=== PATIENT | female | born 1995 | race Caucasian/White ===

== ENCOUNTER 2016-08-24 04:00 | Inpatient (IN) | payer OTHER ==
[2016-08-24] MEDS: DEXTROSE 5%-LACTATED RINGERS 1,000 ML IV SCH (04:10)
[2016-08-24] MEDS ORDERED: BUTORPHANOL TARTRATE 1 MG/ML VIAL IVPB ONE (04:55)
[2016-08-24] MEDS ORDERED: OXYTOCIN 15 UNITS/ LR 250 ML 250 ML IVPB SCH (08:00)
[2016-08-24] MEDS ORDERED: TUBERCULIN PPD 5 TU/0.1ML SYRINGE (IN PATIENT USE ONLY) ID ONE (08:30)
[2016-08-24] MEDS ORDERED: BENZOCAINE 20% 57 GM BOTTLE TP PRN (08:55)
[2016-08-24] MEDS ORDERED: BISACODYL 10 MG SUPP.RECT RC PRN (08:55)
[2016-08-24] MEDS ORDERED: METHYLERGONOVINE MALEATE 0.2 MG/1 ML AMP IM PRN (08:55)
[2016-08-24] MEDS ORDERED: BENZOCAINE 28 GM HEMORRHOIDAL OINTMENT TP PRN (08:55)
[2016-08-24] MEDS ORDERED: WITCH HAZEL 50% (TUCKS) 40 PAD/JAR PAD TP PRN (08:55)
--- NOTE | 2016-08-24 08:59 | PN ---
Delivery - Delivery Vaginal Delivery: Spontaneous Type of Anesthesia: Local Episiotomy/Laceration: 1st degree EBL (cc): 250 Delivery, Single - Feeding Plan Initial Plan: Elected not to breastfeed exclusively throughout hospitalization Remarks - Remarks Remarks: Normal spontaneous vaginal delivery of a live infant boy over labial laceration. Nose / Oropharyn suctioned @ perineum. Cord clamped and cut. Placenta expelled spontaneously intact.. Labial laceration repaired with 2.0 Byosyn.
[2016-08-24] MEDS ORDERED: ELECTROLYTE-148 SOLN 1,000 ML IV SCH (09:00)
[2016-08-24] MEDS ORDERED: D5W-LR W/ 20 UNITS OXYTOCIN 1,000 ML IV SCH (09:00)
--- NOTE | 2016-08-24 09:04 | HP ---
Past Medical History - Admission Chief Complaint: Labor oneal History of Present Illness: 21 yo @ 38 weeks gestation, admitted for Labor pain. History Source: Patient Limitations to Obtaining History: No Limitations - Past Medical History ...: 2 ...Para: 1 ...Term: 1 ...EDC by Andie: 09/05/16 - Past Surgical History Past Surgical History: Yes: None Hx Myomectomy: No Hx Transabdominal Cerclage: No - Smoking History Smoking history: Never smoked Have you smoked in the past 12 months: No - Alcohol/Substance Use Hx Alcohol Use: No History of Substance Use: reports: None - Social History Usual Living Arrangement: Yes: With Spouse History of Recent Travel: No Home Medications - Allergies Allergies/Adverse Reactions: Allergies Allergy/AdvReac Type Severity Reaction Status Date / Time No Known Allergies Allergy Verified 08/23/16 13:49 - Home Medications Home Medications: Ambulatory Orders Vit No.130/Iron/FA [ Vitamins] 1 each PO DAILY 08/23/16 Family Disease History - Family Disease History Family History: Unremarkable Review of Systems - Review of Systems Constitutional: reports: No Symptoms Eyes: reports: No Symptoms HENT: reports: No Symptoms Neck: reports: No Symptoms Cardiovascular: reports: No Symptoms Respiratory: reports: No Symptoms Gastrointestinal: reports: No Symptoms Genitourinary: reports: Pain Breasts: reports: No Symptoms Reported Musculoskeletal: reports: No Symptoms Integumentary: reports: No Symptoms Neurological: reports: No Symptoms Endocrine: reports: No Symptoms Psychiatric: reports: No Symptoms Pain Intensity: 9 Physical Exam - Maternity Vital Signs: Vital Signs Temperature 96.7 F L 08/24/16 06:00 Pulse Rate 85 08/24/16 06:00 Respiratory Rate 20 08/24/16 06:00 Blood Pressure 124/74 08/24/16 06:00 O2 Sat by Pulse Oximetry (%) Constitutional: Yes: Well Nourished Eyes: Yes: Conjunctiva Clear Neck: Yes: Supple Cardiovascular: Yes: Regular Rate and Rhythm Lungs: Clear to auscultation Breast(s): Yes: WNL - Abdominal Exam/OB Number of Fetuses: Single Presentation: Vertex Contractions: Yes - Vaginal Exam/OB Vaginal Bleediing: No Amniotic Membrane Status: Intact Presentation: Vertex/Position - Physical Exam Musculoskeletal: Yes: WNL ...Motor Strength: WNL Psychiatric: Yes: Alert, Oriented Problem List - Problems (1) Pain during labor Code(s): O99.89 - OTH DISEASES AND CONDITIONS COMPL PREG/CHLDBRTH R52 - PAIN, UNSPECIFIED (2) Status post vaginal delivery Code(s): UPY3456 - Assessment/Plan Active labor Admit to L&D Anal gesia as needed Anticipate
[2016-08-24] MEDS: PRENATAL VITAMINS W/ FOLIC ACID TABLET (FP) PO SCH (10:37)
[2016-08-24] MEDS: IBUPROFEN 600 MG TABLET (FP) PO PRN ×2 (10:38→14:18)
[2016-08-24] MEDS: ACETAMINOPHEN 325 MG TABLET (FP) PO PRN ×2 (10:38→14:19)
[2016-08-24] MEDS: FERROUS SO4 325 MG TABLET (FP) PO SCH ×2 (12:06→18:01)
[2016-08-24] MEDS ORDERED: IBUPROFEN 800 MG/8 ML IJ IVPB PRN (16:30)
--- NOTE | 2016-08-25 07:04 | PN ---
Post Progress Note - Subjective Subjective: Pt seen/evaluated and doing well. Pain controlled, tolerating diet. Ambulating , voiding, passing flatus. Denies CP/SOB/F/C/POSADA. No other complaints. Type of Delivery: Vital Signs: Vital Signs Temperature 97.7 F 08/25/16 06:00 Pulse Rate 71 08/25/16 06:00 Respiratory Rate 18 08/25/16 06:00 Blood Pressure 123/82 08/25/16 06:00 O2 Sat by Pulse Oximetry (%) Uterus: Yes: Fundus Firm, Fundus below umbilicus Abdomen/GI: Yes: Abdomen soft, Passing flatus, Tolerating PO. No: Abdominal Distention, Tender Lochia: Yes: Rubra Lochia, amount: Small Extremities: Yes: Calves non-tender. No: Edema Perineum: Yes: Intact (labial laceration -- repaired) Activity: Ambulating Problem List - Problems (1) Status post vaginal delivery Code(s): ELU3431 - (2) Spontaneous vaginal delivery Code(s): O80 - ENCOUNTER FOR FULL-TERM UNCOMPLICATED DELIVERY Assessment/Plan 21 y/o PPD#1 s/p normal and doing well - AFVSS - pain controlled, continue PO pain meds, - encourage ambulation - regular diet - routine care
[2016-08-25 07:23] LABS: BASOPHIL 0.5 % (0-2.0); EOSINOPHIL 0.4 % (0-4.5); MCH 29.9 pg (25.7-33.7); MCHC 34.7 g/dl (32.0-36.0); MEAN CELL VOLUME 86.3 fl (80-96); MEAN PLT VOLUME 9.3 fl (7.5-11.1); NEUTROPHILS 66.3 % (42.8-82.8); PLATELET COUNT 166 K/MM3 (134-434); RDW 12.9 % (11.6-15.6); WHITE BLOOD COUNT 11.4 K/mm3 (4.0-10.0)
[2016-08-25] MEDS: PRENATAL VITAMINS W/ FOLIC ACID TABLET (FP) PO SCH (09:12)
[2016-08-25] MEDS: ACETAMINOPHEN 325 MG TABLET (FP) PO PRN (09:12)
[2016-08-25] MEDS: FERROUS SO4 325 MG TABLET (FP) PO SCH ×3 (09:12→17:30)
[2016-08-25] MEDS ORDERED: DIPHTH,PERTUSS(ACELL),TET 0.5 ML DISP.SYRIN IM ONE (14:00)
[2016-08-25] MEDS: DEXTROSE 5%-LACTATED RINGERS 1,000 ML IV SCH (19:45)
[2016-08-25] MEDS ORDERED: SENNOSIDES/DOCUSATE COMBO (SENNA PLUS) TABLET (UD) PO PRN (22:00)
--- NOTE | 2016-08-26 08:14 | DS ---
Physical Exam-TERMINAL GAUGER SUPERVISOR Vital Signs: Vital Signs Temperature 98.6 F 08/25/16 22:00 Pulse Rate 91 H 08/25/16 22:00 Respiratory Rate 18 08/25/16 22:00 Blood Pressure 119/71 08/25/16 22:00 O2 Sat by Pulse Oximetry (%) Labs: CBC, BMP 08/25/16 06:00 Delivery - Delivery Vaginal Delivery: No Problems, Spontaneous Type of Anesthesia: Local Episiotomy/Laceration: 1st degree EBL (cc): 250 Delivery, Single - Stages of Labor Date 1st Stage Initiatied: 08/24/16 Time 1st Stage Initiated: 03:00 Date 2nd Stage Initiated: 08/24/16 Time 2nd Stage Initiated: 08:20 Date of Delivery: 08/24/16 Time of Delivery: 08:24 Time Placenta Delivered: 08:30 - 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 - 1 Minute Total Score: 9 5 Minutes Total Score: 9 - Feeding Plan Initial Plan: Elected not to breastfeed exclusively throughout hospitalization Discharge Summary Reason For Visit: LABOR Current Active Problems Pain during labor (Acute) Status post vaginal delivery (Acute) Condition: Good - Instructions Diet, Activity, Other Instructions: No sexual activity for 6 weeks No strenuous exercise until cleared by your doctor No swimming/soaking in tubs or pools for 6 weeks You may eat a regular well balanced diet Follow up with your doctor in 4-6 weeks - call the office to make an appointment Referrals: Heather Muhammad MD [Staff Physician] - Disposition: HOME - Home Medications Comprehensive Discharge Medication List: Ambulatory Orders Vit No.130/Iron/FA [ Vitamins] 1 each PO DAILY 08/23/16
[2016-08-26] MEDS: FERROUS SO4 325 MG TABLET (FP) PO SCH ×2 (08:38→11:46)
[2016-08-26 08:51] VITALS: BP 111/70; PULSE 73; TEMP 98.3
[2016-08-26] MEDS: PRENATAL VITAMINS W/ FOLIC ACID TABLET (FP) PO SCH (09:18)
== END 2016-08-26 12:15 | disposition home or self-care (01) | DRG 560 ==
LOC: JLDR 04:00 → J3W 10:21
PROVIDERS: ADMIT Obstetrics & Gynecology; ATTEND Obstetrics & Gynecology
PROC: 10E0XZZ Delivery of Products of Conception, External Approach (ICD-10-PCS; principal; 2016-08-24)
PROC: 0HQ9XZZ Repair Perineum Skin, External Approach (ICD-10-PCS; 2016-08-24)
DX: O70.0 First degree perineal laceration during delivery (principal); Z3A.38 38 weeks gestation of pregnancy; Z37.0 Single live birth
CPT/HCPCS: 36415; 59409; 85025; 90715

== ENCOUNTER 2022-08-07 01:10 | Emergency (ER) | payer OTHER ==
[2022-08-07 01:23] VITALS: RESP 18; BMI 28.3
[2022-08-07] MEDS ORDERED: ACETAMINOPHEN 1000 MG/100 ML BAG IVPB ONE (02:08)
[2022-08-07] MEDS ORDERED: ACETAMINOPHEN INJECTION 100 ML IVPB ONE (02:16)
[2022-08-07 02:56] LABS: BASO % 0.6 % (0-2.0); EOS % 2.2 % (0-4.5); HEMATOCRIT 39.2 % (32.4-45.2); HEMOGLOBIN 13.6 GM/dL (10.7-15.3); LYMPH % 40.7 % (8-40); MCH 29.5 pg (25.7-33.7); MCHC 34.6 g/dl (32.0-36.0); MEAN CELL VOLUME 85.3 fl (80-96); MEAN PLT VOLUME 8.2 fl (7.5-11.1); MONO % 7.3 % (3.8-10.2); NEUT % 49.2 % (42.8-82.8); PLATELET COUNT 257 10^3/uL (134-434); RDW 12.5 % (11.6-15.6)
[2022-08-07 02:59] LABS: EPI CELLS 24 /uL (0-25.1); HYALINE CASTS 0 /uL (0-3.1); PH,URINE 5.5 (5.0-8.0); URINE APPEARANCE Error; URINE BACTERIA 695 /uL (0-1359); URINE BILIRUBIN NEGATIVE (NEGATIVE); URINE COLOR YELLOW; URINE GLUCOSE (UA) NEGATIVE (NEGATIVE); URINE KETONE NEGATIVE (NEGATIVE); URINE LEUK ESTERASE TRACE (NEGATIVE); URINE NITRITE NEGATIVE (NEGATIVE); URINE PROTEIN 2+ (NEGATIVE); URINE RBC 8 /uL (0-23.9); URINE WBC 18 /uL (0-25.8)
[2022-08-07 03:34] LABS: POTASSIUM 4.1 mmol/L (3.5-5.1)
[2022-08-07 03:36] LABS: CALCIUM 8.7 mg/dL (8.5-10.1)
[2022-08-07 03:37] LABS: ALBUMIN 3.6 g/dl (3.4-5.0); BLOOD UREA NITROGEN 18.4 mg/dL (7-18)
[2022-08-07 03:39] LABS: CREATININE 1.4 mg/dL (0.55-1.3)
[2022-08-07 03:41] LABS: BILIRUBIN,TOTAL 0.3 mg/dL (0.2-1); TOT PROT 7.3 g/dl (6.4-8.2)
[2022-08-07] MEDS ORDERED: SODIUM CHLORIDE 0.9% 500 ML INFUS.BAG IV ONE (03:58)
[2022-08-07 10:37] VITALS: BP 106/70; PULSE 64; TEMP 97.7
[2022-08-07] MEDS ORDERED: CEPHALEXIN MONOHYDRATE 500 MG CAPSULE (UD) PO ONE (10:50)
[2022-08-07] MEDS ORDERED: CEPHALEXIN MONOHYDRATE 500 MG CAPSULE (UD) ONE (10:55)
== END 2022-08-07 10:58 | disposition home or self-care (01) ==
LOC: JER 01:10
PROC: 3E033NZ Introduction of Analgesics, Hypnotics, Sedatives into Peripheral Vein, Percutaneous Approach (ICD-10-PCS; principal; 2022-08-07)
DX: R10.32 Left lower quadrant pain (principal); N30.00 Acute cystitis without hematuria
CPT/HCPCS: 36415; 74177-TC; 80053; 81003; 83690; 84703; 85025; 87086; 87491; 87591; 93005; 93010; 99285-25; Q9967

== ENCOUNTER 2023-02-01 10:55 | Emergency (ER) | payer OTHER ==
[2023-02-01 11:03] VITALS: TEMP 97.8; BMI 28.7
[2023-02-01 12:50] LABS: BASO % 0.2 % (0-2.0); EOS % 0.4 % (0-4.5); HEMATOCRIT 36.1 % (32.4-45.2); LYMPH % 16.9 % (8-40); MCH 28.3 pg (25.7-33.7); MCHC 33.2 g/dl (32.0-36.0); MEAN CELL VOLUME 85.1 fl (80-96); MEAN PLT VOLUME 8.4 fl (7.5-11.1); MONO % 5.5 % (3.8-10.2); PLATELET COUNT 246 10^3/uL (134-434); RBC 4.24 M/mm3 (3.60-5.2); RDW 11.5 % (11.6-15.6); WHITE BLOOD COUNT 8.2 K/mm3 (4.0-10.0)
[2023-02-01 12:52] LABS: EPI CELLS >36 /uL (0-25.1); HYALINE CASTS 1 /uL (0-3.1); PH,URINE 5.5 (5.0-8.0); URINE APPEARANCE CLEAR; URINE BACTERIA 2025 /uL (0-1359); URINE BILIRUBIN NEGATIVE (NEGATIVE); URINE COLOR YELLOW; URINE GLUCOSE (UA) NEGATIVE (NEGATIVE); URINE KETONE NEGATIVE (NEGATIVE); URINE LEUK ESTERASE NEGATIVE (NEGATIVE); URINE NITRITE NEGATIVE (NEGATIVE); URINE PROTEIN 2+ (NEGATIVE); URINE RBC 22 /uL (0-23.9); URINE WBC 30 /uL (0-25.8)
[2023-02-01 13:09] LABS: POTASSIUM 3.9 mmol/L (3.5-5.1)
[2023-02-01 13:11] LABS: ALBUMIN 2.8 g/dl (3.4-5.0); BLOOD UREA NITROGEN 10.8 mg/dL (7-18); CALCIUM 8.8 mg/dL (8.5-10.1)
[2023-02-01 13:16] LABS: BILIRUBIN,TOTAL 0.3 mg/dL (0.2-1); TOT PROT 6.4 g/dl (6.4-8.2)
[2023-02-01] MEDS ORDERED: CEPHALEXIN MONOHYDRATE 500 MG CAPSULE (UD) PO ONE (15:30)
[2023-02-01] MEDS ORDERED: CEPHALEXIN MONOHYDRATE 500 MG CAPSULE (UD) ONE (15:39)
[2023-02-01 16:17] VITALS: BP 111/70; PULSE 85; RESP 17
== END 2023-02-01 16:10 | disposition home or self-care (01) ==
LOC: JER 10:55
DX: O26.891 Other specified pregnancy related conditions, first trimester (principal); R10.9 Unspecified abdominal pain; O23.41 Unspecified infection of urinary tract in pregnancy, first trimester; Z3A.12 12 weeks gestation of pregnancy
CPT/HCPCS: 36415; 80053; 81003; 85025; 87086; 99283-25

== ENCOUNTER 2023-02-27 03:16 | Emergency (ER) | payer OTHER ==
[2023-02-27 03:24] VITALS: BP 123/86; PULSE 118; RESP 20; TEMP 99.7; BMI 28.1
[2023-02-27] MEDS ORDERED: ACETAMINOPHEN 325 MG TABLET (FP) PO ONE (03:49)
[2023-02-27 04:56] LABS: EPI CELLS 19 /uL (0-25.1); HYALINE CASTS 1 /uL (0-3.1); URINE APPEARANCE CLEAR; URINE BACTERIA 422 /uL (0-1359); URINE BILIRUBIN NEGATIVE (NEGATIVE); URINE COLOR YELLOW; URINE GLUCOSE (UA) NEGATIVE (NEGATIVE); URINE KETONE NEGATIVE (NEGATIVE); URINE LEUK ESTERASE NEGATIVE (NEGATIVE); URINE NITRITE NEGATIVE (NEGATIVE); URINE PROTEIN 1+ (NEGATIVE); URINE RBC 10 /uL (0-23.9); URINE UROBILINOGEN 0.2 mg/dL (0.2-1.0); URINE WBC 5 /uL (0-25.8)
== END 2023-02-27 04:53 | disposition home or self-care (01) ==
LOC: JER 03:16
DX: O99.352 Diseases of the nervous system complicating pregnancy, second trimester (principal); R51.9 Headache, unspecified; O98.512 Other viral diseases complicating pregnancy, second trimester; U07.1 COVID-19; Z3A.16 16 weeks gestation of pregnancy
CPT/HCPCS: 0241U-QW; 81003; 99283-25

== ENCOUNTER 2023-07-30 03:55 | Inpatient (IN) | payer OTHER ==
[2023-07-30] MEDS: ELECTROLYTE-148 SOLN 1,000 ML IV ONE (05:13)
[2023-07-30 06:41] VITALS: BMI 34.0
[2023-07-30 07:33] LABS: BASO % 0.8 % (0-2.0); HEMATOCRIT 34.2 % (32.4-45.2); HEMOGLOBIN 11.8 GM/dL (10.7-15.3); LYMPH % 22.9 % (8-40); MCH 31.3 pg (25.7-33.7); MCHC 34.7 g/dl (32.0-36.0); MEAN CELL VOLUME 90.3 fl (80-96); MEAN PLT VOLUME 8.9 fl (7.5-11.1); MONO % 4.6 % (3.8-10.2); NEUT % 70.7 % (42.8-82.8); PLATELET COUNT 214 10^3/uL (134-434); RBC 3.78 M/mm3 (3.60-5.2); RDW 12.7 % (11.6-15.6); WHITE BLOOD COUNT 8.4 K/mm3 (4.0-10.0)
[2023-07-30] MEDS ORDERED: FENTANYL/BUPIVACAINE/NS/PF - PCEA - 50 ML DISP.SYRIN EP ONE ×4 (07:43→19:31)
[2023-07-30 07:53] LABS: POTASSIUM 3.9 mmol/L (3.5-5.1)
[2023-07-30 07:54] LABS: CALCIUM 8.8 mg/dL (8.5-10.1)
[2023-07-30 07:55] LABS: BLOOD UREA NITROGEN 15.6 mg/dL (7-18)
[2023-07-30 07:58] LABS: CREATININE 1.1 mg/dL (0.55-1.3)
[2023-07-30] MEDS: FENTANYL/BUPIVACAINE/NS/PF - PCEA - 50 ML DISP.SYRIN EP SCH ×2 (08:20→13:00)
[2023-07-30 08:22] LABS: INR 0.86 (0.83-1.09); PROTHROMBIN TIME (PATIENT) 9.8 SEC (9.7-13.0)
[2023-07-30 08:25] LABS: ACTIVATED PTT 26.5 SECONDS (25.2-36.5)
[2023-07-30] MEDS ORDERED: NALOXONE HCL 0.4 MG/ML VIAL IVPUSH PRN (09:33)
[2023-07-30] MEDS: ELECTROLYTE-148 SOLN 1,000 ML IV SCH (12:00)
[2023-07-30] MEDS ORDERED: ONDANSETRON 4 MG/2 ML VIAL ONE (17:52)
[2023-07-30] MEDS: ONDANSETRON 4 MG/2 ML VIAL IVPB ONE (17:55)
[2023-07-30 20:55] VITALS: RESP 18
[2023-07-30] MEDS ORDERED: OXYTOCIN 20 UNITS in 0.9% NS 20 UNIT/1,000 ML INFUS.BAG IV ONE (21:20)
[2023-07-30] MEDS: OXYTOCIN 20 UNITS in 0.9% NS 20 UNIT/1,000 ML INFUS.BAG IV SCH (22:00)
[2023-07-30] MEDS ORDERED: oxyCODONE HCL 5 MG TABLET PO PRN (22:07)
[2023-07-30] MEDS ORDERED: METHYLERGONOVINE MALEATE 0.2 MG/1 ML AMP IM PRN (22:07)
[2023-07-30] MEDS ORDERED: BENZOCAINE 28 GM HEMORRHOIDAL OINTMENT TP PRN (22:07)
[2023-07-30] MEDS ORDERED: BENZOCAINE 20% 57 GM BOTTLE TP PRN (22:07)
[2023-07-30] MEDS ORDERED: WITCH HAZEL 50% (TUCKS) 40 PAD/JAR PAD TP PRN (22:07)
[2023-07-30] MEDS ORDERED: BISACODYL 10 MG SUPP.RECT RC PRN (22:07)
[2023-07-30 22:44] LABS: CORD BASE EXCESS -2.6 mmol/L (0-2); CORD BASE EXCESS -5.3 mmol/L (0-2); CORD HCO3 21.1 mmHg (20-29); CORD HCO3 24.5 mmHg (20-29); CORD PCO2 33.7 mmHg (30-78); CORD PCO2 68.8 mmHg (30-78); CORD pH 7.17 (7.14-7.44); CORD pH 7.415 (7.14-7.44)
[2023-07-30] MEDS: METOCLOPRAMIDE HCL INJECTION 10 MG/2 ML VIAL IVPUSH ONE (22:48)
[2023-07-30] MEDS ORDERED: IBUPROFEN 600 MG TABLET (FP) PO ONE (23:38)
[2023-07-30] MEDS: IBUPROFEN 600 MG TABLET (FP) PO PRN (23:40)
[2023-07-31] MEDS: ACETAMINOPHEN 325 MG TABLET (FP) PO PRN (01:27)
[2023-07-31] MEDS: FERROUS SO4 325 MG TABLET (FP) PO SCH (08:13)
[2023-07-31 08:28] LABS: BASO % 0.2 % (0-2.0); EOS % 0.3 % (0-4.5); HEMATOCRIT 31.1 % (32.4-45.2); HEMOGLOBIN 10.7 GM/dL (10.7-15.3); LYMPH % 10.6 % (8-40); MCH 30.9 pg (25.7-33.7); MCHC 34.6 g/dl (32.0-36.0); MEAN CELL VOLUME 89.4 fl (80-96); NEUT % 83.9 % (42.8-82.8); PLATELET COUNT 177 10^3/uL (134-434); RBC 3.47 M/mm3 (3.60-5.2); RDW 13.2 % (11.6-15.6); WHITE BLOOD COUNT 12.4 K/mm3 (4.0-10.0)
[2023-07-31] MEDS: PRENATAL VITAMINS W/ FOLIC ACID TABLET (FP) PO SCH (09:47)
[2023-07-31] MEDS ORDERED: SENNOSIDES/DOCUSATE COMBO (SENNA PLUS) TABLET (UD) PO PRN (22:00)
[2023-08-01 08:54] VITALS: BP 114/78; PULSE 80; TEMP 98.1
== END 2023-08-01 13:00 | disposition home or self-care (01) | DRG 560 ==
LOC: JDEL 03:55 → JLDR 06:20 → J3W 07-31 00:21
PROVIDERS: ADMIT Obstetrics & Gynecology; ATTEND Obstetrics & Gynecology
PROC: 10E0XZZ Delivery of Products of Conception, External Approach (ICD-10-PCS; principal; 2023-07-30)
DX: O40.3XX0 Polyhydramnios, third trimester, not applicable or unspecified (principal); O69.81X0 Labor and delivery complicated by cord around neck, without compression, not applicable or unspecified; Z3A.38 38 weeks gestation of pregnancy; Z37.0 Single live birth
CPT/HCPCS: 36415; 36600; 59025; 59409; 80048; 82803; 85025; 85610; 85730; 86780; 86850; 86900; 86901

== ENCOUNTER 2023-08-02 14:26 | Observation (INO) | payer OTHER ==
[2023-08-02 14:35] VITALS: BMI 30.2
[2023-08-02] MEDS ORDERED: ACETAMINOPHEN INJECTION 100 ML IVPB ONE (16:14)
[2023-08-02] MEDS ORDERED: FAMOTIDINE 20 MG/50 ML IVPB 20 MG/50 ML MG IVPB ONE (16:15)
[2023-08-02] MEDS: SODIUM CHLORIDE 0.9% 500 ML INFUS.BAG IV ONE (16:21)
[2023-08-02] MEDS: FAMOTIDINE 20 MG/50 ML IVPB 20 MG/50 ML MG IVPB ONE (16:22)
[2023-08-02] MEDS: ACETAMINOPHEN 1000 MG/100 ML BAG IVPB ONE (16:22)
[2023-08-02 16:23] LABS: EPI CELLS 15 /uL (0-25.1); HYALINE CASTS 0 /uL (0-3.1); PH,URINE 6.5 (5.0-8.0); URINE APPEARANCE CLEAR; URINE BACTERIA 300 /uL (0-1359); URINE BILIRUBIN NEGATIVE (NEGATIVE); URINE COLOR YELLOW; URINE GLUCOSE (UA) NEGATIVE (NEGATIVE); URINE KETONE NEGATIVE (NEGATIVE); URINE LEUK ESTERASE TRACE (NEGATIVE); URINE NITRITE NEGATIVE (NEGATIVE); URINE PROTEIN 3+ (NEGATIVE); URINE RBC 250 /uL (0-23.9); URINE WBC 183 /uL (0-25.8)
[2023-08-02 16:29] LABS: BASO % 0.2 % (0-2.0); EOS % 0.5 % (0-4.5); HEMOGLOBIN 11.8 GM/dL (10.7-15.3); LYMPH % 13.5 % (8-40); MCH 31.3 pg (25.7-33.7); MCHC 34.7 g/dl (32.0-36.0); MEAN CELL VOLUME 90.4 fl (80-96); MEAN PLT VOLUME 8.3 fl (7.5-11.1); MONO % 5.6 % (3.8-10.2); NEUT % 80.2 % (42.8-82.8); PLATELET COUNT 211 10^3/uL (134-434); RBC 3.76 M/mm3 (3.60-5.2); RDW 13.1 % (11.6-15.6); WHITE BLOOD COUNT 8.4 K/mm3 (4.0-10.0)
[2023-08-02 16:36] LABS: INR 0.87 (0.83-1.09)
[2023-08-02 16:51] LABS: POTASSIUM 4.2 mmol/L (3.5-5.1)
[2023-08-02 16:55] LABS: CALCIUM 8.5 mg/dL (8.5-10.1)
[2023-08-02 16:56] LABS: ALBUMIN 2.2 g/dl (3.4-5.0)
[2023-08-02 16:59] LABS: CREATININE 1.3 mg/dL (0.55-1.3)
[2023-08-02 17:00] LABS: BILIRUBIN,TOTAL 0.3 mg/dL (0.2-1); TOT PROT 5.9 g/dl (6.4-8.2)
[2023-08-02] MEDS ORDERED: MAGNESIUM 4GM/H20 - 4 GM/100 ML IVPB IVPB SCH (20:48)
[2023-08-02] MEDS ORDERED: MAGNESIUM SULFATE 20GM/500ML - 20 GM/500 ML INFUS.BAG IVPB SCH (21:00)
[2023-08-02] MEDS ORDERED: LABETALOL HCL 200 MG TABLET (FP) ONE (21:18)
[2023-08-02] MEDS: LABETALOL HCL 200 MG TABLET (FP) PO ONE (21:31)
[2023-08-02 21:41] LABS: MAGNESIUM 1.8 mg/dL (1.8-2.4)
[2023-08-02] MEDS: MAGNESIUM 4GM/H20 - 4 GM/100 ML IVPB IVPB SCH (21:46)
[2023-08-02] MEDS: MAGNESIUM SULFATE 20GM/500ML - 20 GM/500 ML INFUS.BAG IVPB SCH (22:20)
[2023-08-02] MEDS: LABETALOL HCL 200 MG TABLET (FP) PO SCH (22:37)
[2023-08-03 07:28] VITALS: RESP 20
[2023-08-03 08:33] LABS: GAMMA GLUTAMYL TRANSPEPTIDASE 17 U/L (5-85)
[2023-08-03 08:35] LABS: SGOT/AST 44 U/L (15-37); URIC ACID 8.1 mg/dL (2.6-7.2)
[2023-08-03 08:37] LABS: RETICULOCYTES 1.86 % (0.5-1.5)
[2023-08-03 08:38] LABS: MAGNESIUM 8.3 mg/dL (1.8-2.4); SGPT/ALT 46 U/L (13-61)
[2023-08-03] MEDS: ELECTROLYTE-148 SOLN 500 ML IV ONE (09:20)
[2023-08-03] MEDS ORDERED: ACETAMINOPHEN INJECTION 100 ML IVPB ONE (09:53)
[2023-08-03] MEDS: ACETAMINOPHEN 1000 MG/100 ML BAG IVPB ONE (09:55)
[2023-08-03] MEDS: ELECTROLYTE-148 SOLN 1,000 ML IV SCH (09:55)
[2023-08-03 11:24] VITALS: TEMP 97.9
[2023-08-03 12:03] VITALS: BP 116/73; PULSE 93
== END 2023-08-03 12:15 | disposition home or self-care (01) ==
LOC: JER 14:26 → UNDOADMOB 21:16 → JERBED 21:16 → INTOOBSV 21:16 → JERBED 08-03 08:00 → JLDR 08-03 08:00
PROVIDERS: ADMIT Obstetrics & Gynecology; ATTEND Obstetrics & Gynecology
PROC: 3E033GC Introduction of Other Therapeutic Substance into Peripheral Vein, Percutaneous Approach (ICD-10-PCS; principal; 2023-08-03)
PROC: 3E033NZ Introduction of Analgesics, Hypnotics, Sedatives into Peripheral Vein, Percutaneous Approach (ICD-10-PCS; 2023-08-03)
PROC: 3E0337Z Introduction of Electrolytic and Water Balance Substance into Peripheral Vein, Percutaneous Approach (ICD-10-PCS; 2023-08-03)
DX: O14.95 Unspecified pre-eclampsia, complicating the puerperium (principal); R51.9 Headache, unspecified
CPT/HCPCS: 36415; 76705-TC; 80053; 81003; 82977; 83010; 83690; 83735; 84450; 84460; 84550; 85025; 85032; 85045; 85610; 86850; 86900; 86901; 87086; 87651; 93971-TC; 96365; 96367; 96375; 96376; 99285-25; G0378; J0131

== ENCOUNTER 2023-10-12 18:52 | Emergency (ER) | payer OTHER ==
[2023-10-12 19:00] VITALS: TEMP 97.8; BMI 29.0
[2023-10-12 21:00] LABS: BASO % 0.5 % (0-2.0); EOS % 0.7 % (0-4.5); HEMOGLOBIN 14.2 GM/dL (10.7-15.3); LYMPH % 25.3 % (8-40); MCH 29.9 pg (25.7-33.7); MCHC 34.5 g/dl (32.0-36.0); MEAN CELL VOLUME 86.8 fl (80-96); MEAN PLT VOLUME 7.6 fl (7.5-11.1); MONO % 6.5 % (3.8-10.2); PLATELET COUNT 295 10^3/uL (134-434); RBC 4.73 M/mm3 (3.60-5.2); RDW 12.2 % (11.6-15.6); WHITE BLOOD COUNT 8.3 K/mm3 (4.0-10.0)
[2023-10-12 21:06] LABS: INR 0.99 (0.83-1.09); PROTHROMBIN TIME (PATIENT) 11.2 SEC (9.7-13.0)
[2023-10-12 21:09] LABS: ACTIVATED PTT 33.1 SECONDS (25.2-36.5)
[2023-10-12 21:12] LABS: EPI CELLS >36 /uL (0-25.1); HYALINE CASTS 0 /uL (0-3.1); PH,URINE 5.5 (5.0-8.0); URINE APPEARANCE CLEAR; URINE BACTERIA 789 /uL (0-1359); URINE BILIRUBIN NEGATIVE (NEGATIVE); URINE COLOR YELLOW; URINE GLUCOSE (UA) NEGATIVE (NEGATIVE); URINE KETONE NEGATIVE (NEGATIVE); URINE LEUK ESTERASE NEGATIVE (NEGATIVE); URINE NITRITE NEGATIVE (NEGATIVE); URINE PROTEIN 3+ (NEGATIVE); URINE RBC 13 /uL (0-23.9); URINE WBC 21 /uL (0-25.8)
[2023-10-12 21:19] LABS: POTASSIUM 4.2 mmol/L (3.5-5.1)
[2023-10-12 21:22] LABS: CALCIUM 9.3 mg/dL (8.5-10.1)
[2023-10-12 21:23] LABS: BLOOD UREA NITROGEN 18.3 mg/dL (7-18)
[2023-10-12 21:26] LABS: BILIRUBIN,TOTAL 0.5 mg/dL (0.2-1); CREATININE 1.3 mg/dL (0.55-1.3); TOT PROT 7.5 g/dl (6.4-8.2)
[2023-10-12] MEDS ORDERED: ACETAMINOPHEN 325 MG TABLET (FP) ONE (22:24)
[2023-10-12] MEDS: ACETAMINOPHEN 325 MG TABLET (FP) PO ONE (22:27)
[2023-10-12 23:06] VITALS: BP 122/78; PULSE 78; RESP 19
== END 2023-10-12 23:06 | disposition home or self-care (01) ==
LOC: JER 18:52
DX: R80.9 Proteinuria, unspecified (principal); R10.32 Left lower quadrant pain
CPT/HCPCS: 36415; 76775-TC; 80053; 81003; 85025; 85610; 85730; 87086; 99284-25

== ENCOUNTER 2023-10-30 04:04 | Day surgery (SDC) | payer OTHER ==
[2023-10-26 17:16] VITALS: BMI 29.0
[2023-10-30] MEDS ORDERED: FENTANYL CITRATE/PF 50 MCG/ML VIAL ONE (12:39)
[2023-10-30] MEDS ORDERED: MIDAZOLAM HCL 2 MG/2 ML SINGLE DOSE VIAL ONE (12:39)
[2023-10-30] MEDS: MIDAZOLAM HCL 5 MG/5 ML - 5 ML VIAL IVPUSH ONE (13:28)
[2023-10-30 16:02] VITALS: RESP 20; TEMP 97.2
[2023-10-30 16:33] VITALS: BP 105/64; PULSE 64
== END 2023-10-30 16:55 | disposition home or self-care (01) ==
LOC: JRADIR 04:04
PROVIDERS: ATTEND Internal Medicine
PROC: 0TB03ZX Excision of Right Kidney, Percutaneous Approach, Diagnostic (ICD-10-PCS; principal; 2023-10-30)
DX: N26.9 Renal sclerosis, unspecified (principal)
CPT/HCPCS: 50200; 76775-TC; 76942-TC; 81025; 88300-TC; 88329